=== PATIENT | male | born 1945 | race Caucasian/White ===

== ENCOUNTER → 2017-01-28 | Day surgery (SDC) | payer MEDICARE, OTHER ==
[2017-01-28] VITALS (9 sets, daily range): BP systolic 125–161; BP diastolic 64–93; PULSE 59–83; RESP 13–24; O2SAT 92–98
[~2017-01-28] VITALS: Ht 180.3 cm; Wt 91.5 kg
[~2017-01-28] MED LIST: ASPI-973 PO; Atropine 0.4 mg/mL Inj IVPUSH PRN; Bupivacaine-MPF 0.5% 30 mL Inj INFILTRATE ONE; CAR8A PO; CITA20TA11 PO; CeFAZolin Inj 2 GM in IV Premix 1 EACH IV SCH; Dexamethasone 4 mg/mL Inj IVPUSH PRN; EPHEDrine Sulfate 50 mg/mL Inj IVPUSH PRN; EPHEDrine/NS 5 mg/mL 5 mL Syringe ONE; Glycopyrrolate 0.2 MG/ML 1mL Inj ONE; HYDROcodone-APAP 10-325 mg PO ONE; HYDROcodone-APAP 10-325 mg PO PRN; HYDROmorphone 0.5 mg/0.5 mL iSecure Syringe ONE; HYDROmorphone 1 mg/mL Inj IVPUSH PRN; Labetalol 5 mg/mL 20 mL Inj IV PRN; Lactated Ringer's 1,000 ML IV SCH; Lactated Ringer's 500 ML IV PRN; MELA1TAB10 PO; MULT1CAP33 PO; Neostigmine 1 mg/mL 10 mL Inj ONE; Ondansetron 2 mg/mL 2 mL Inj IVPUSH PRN; Ondansetron 2 mg/mL 2 mL Inj ONE; PANT40TA3 PO; Phenylephrine 10,000 mCg/mL Inj IVPUSH PRN; Propofol 10,000 mCg/mL 20 mL Inj ONE; Remifentanil 1 mg/3 mL Inj ONE; Rocuronium 10 mg/mL 5 mL Inj ONE; fentaNYL-PF 50 mCg/mL 2 mL Inj IVPUSH PRN; fentaNYL-PF 50 mCg/mL 2 mL Inj ONE; hydrALAZINE 20 mg/mL Inj IVPUSH PRN
[2017-01-28] MEDS: Lactated Ringer's 1,000 ML IV SCH ×3 (06:22→09:59)
--- NOTE | 2017-01-28 07:05 | PCM.HPANE ---
Patient Data Surgeon Admitting Provider: Attending Provider:Fei Fay MD Primary Care Physician:Stew Cid MD Other Provider:Carmelita Price Anesthesia Reason for Visit Left Hydrocele Ht/WT & BMI Height (Feet): 5 Height (Inches): 11 Weight (Kilograms): 91.5 Body Mass Index 28.00 Allergies Coded Allergies: No Known Allergies (Unverified , 01/27/17) Past Anesthesia History Anesthesia History: Denies:: Abnormal Airway, Anesthesia Reactions, Difficult Intubation, Fam Anesthesia Reaction, Fam Malignant Hypertherm, Malignant Hyperthermia Diabetes History Hx Diabetes?: No MRSA MRSA: No Medications Home Meds Incl Beta Kelly: No Reported Medications Multivitamin (Multivitamins)1 Each Capsule1 Each PO 01/27/[address] 40 Mg Tablet.dr40 Mg PO DAILY Ref 0 01/27/17 Melatonin (Melatonin 1 mg Tablet)1 Each Tablet1 Mg PO HS Ref 0 01/27/17 Doxazosin (Cardura)8 Mg Tablet8 Mg PO HS Ref 0 01/27/17 Citalopram 20 Mg Zauqoz51 Mg PO DAILY Ref 0 01/27/17 Aspirin 81 Mg [id number] Mg PO DAILY Ref 0 01/27/17 Discontinued Reported Medications Multivitamin (Men's Multi-Vitamin)1 Each Tablet1 Each PO DAILY 01/26/[address] 40 Mg Tablet.dr40 Mg PO DAILY Ref 0 01/26/17 Melatonin/Pyridoxine HCl (B6) (Melatonin 10 mg Tablet)1 Each Tab.mphase1 Each PO HS 01/26/17 Doxazosin (Cardura)8 Mg Tablet8 Mg PO HS Ref 0 01/26/17 Citalopram 20 Mg Cqoeef74 Mg PO DAILY Ref 0 01/26/17 Aspirin 81 Mg Nmuslo18 Mg PO DAILY Ref 0 01/26/17 History History of ENT Problems?: No HEENT History: Positive for:: Hearing Problem Denies:: Abnormal Airway Difficult Intubation Dysphagia Sinus Problem TMJ Denture Type: None Teeth Condition: Within Normal Limits Hx of Heart Problems?: No Cardiovascular History: Denies:: AICD Abdominal Aortic Aneurism Atrial Fibrillation Cardiac Surgery Chest Pain Congestive Heart Failure Coronary Artery Disease Edema Heart Murmur Hypertension Irregular Heartbeat Pacemaker Peripheral Vascular Rheumatic Fever Thrombophlebitis Valvular Heart Disease Hx of Respiratory Problem?: No Respiratory History: Denies:: Use of C-PAP Machine Hx Neurologic Problems?: No Neurological History: Denies:: Alzheimer's Disease CVA Dementia Dizziness Headaches Multiple Sclerosis Parkinson's Disease Seizures TIA Hx of GI Problems?: No Hx of Problems?: No Male Hx: Positive for:: Scrotal Mass (Resason for admission) Denies:: Prostate Problems Testicular Surgery Skin History: Denies:: History Skin Disorders? Pressure Ulcers Hx Musculoskeletal Problems?: No Hx of Psycho/Social Problems?: No (situational depression) Psycho Social History: Positive for:: Hx Depression Hx Surgeries?: Yes (eye lids surgery, arterial ligation to help with reproduction) Other History: Positive for:: Hospitalization (plastic surgery eye lids) Denies:: Cancer Endocrine Disease Thyroid Disease History Blood Transfusions: Positive for:: Accept Blood Products? Denies:: Blood Transfusions Hx Diabetes: No Hx Alcohol Use: YesAlcoholic Drinks Per Day: 8 oz glass of wine 2-3 times a weekHx Substance Use: No Stop/Bang S-Snoring: Do You Snore Loudly: No T-Tired: feel tired, fatigued: Yes O-Obsered: Observed not breath: Yes P-Blood Pressure: treated: No B- Body Mass Index > 35 kg/m2: No A- Age over 50: Yes N- Neck Large Circumference: No G- Gender Male: Yes LANEY Total Score: 4 Risk Assessment Category Category 1A: Patient has history of documented sleep apnea, and HAS NOT received any narcotic, sedative or anesthesia administration during this stay. Category 1B: Patient has history of documented sleep apnea, and HAS received any narcotic , sedative or anesthesia administration during this stay Category 2: Patient has SUSPECTED Obstructive Sleep Apnea, and HAS received any narcotic , sedative or anesthesia administration during this stay. Category 3: Patient has SUSPECTED Obstructive Sleep Apnea and HAS NOT received narcotic, sedative or anesthesia administration during this stay. Category 4: Outpatient in Procedural Areas with known sleep apnea or who screen positive for High Risk via the STOP/BANG questionnaire. Exam Exam Vital Signs Vital Signs Date Time Temp Pulse Resp B/P Pulse Ox O2 Delivery O2 Flow Rate FiO2 01/28/17 06:11 36.6 59 16 135/81 97 Room Air General Appearance: Alert, Oriented X3, Cooperative, Mild Distress HEENT/AIRWAY: MP 2 Lungs: Clear to Auscultation Heart: Exam Unremarkable Meds/Labs/Diagnostics Admission Meds Current Medications Lactated Ringer's (Lr) 1,000 ml @ 120 mls/hr Q8H20M IV Last administered on t 06:22; Start 01/28/17 at 05:00; Stop 01/28/17 at 13:19 Plan Impression Patient chart reviewed, patient interviewed and anesthestic plan with risks, benefits, and alternatives discussed, and informed consent obtained. ASA Physical Status: ASA2 Mod Systemic Disease Anesthetic Plan: GA Bene/Risks/Altern/Consents: Yes HP Complete Prior to Induction: Yes Hung Jorgensen MD Jan 28, 2017 07:05
--- NOTE | 2017-01-28 09:34 | PCM.SURGPO ---
Immediate Operative Note Date of Surgery: Jan 28, 2017 Pre Operative Diagnosis L hydrocele Post Operative Diagnosis L hydrocele Procedure L hydrocelectomy Surgeon and Bus Washer Surgeon: Fei Fay MD Assistants: None Findings Moderate L hydrocele seen. L hydrocelectomy performed. Complications There were no periprocedural complications identified. Surgical Specimen Removed: Yes Specimen sent to Pathology: Yes Surgical Specimen description: L hydrocele sac Anesthetic Administered: GA Grafts, Implants: None Output, Estimated Blood Loss: <5 Blood Admin during surgery: No Additional information Patient to return to see me in 2 weeks for post-op visit. Fei Fay MD Jan 28, 2017 09:34
--- NOTE | 2017-01-28 09:35 | PCM.ANEP1 ---
Post Anesthesia PACU Phase 1 Assessment Vital Signs Vital Signs Date Time Temp Pulse Resp B/P Pulse Ox O2 Delivery O2 Flow Rate FiO2 01/28/17 09:30 36.2 76 13 125/64 93 Room Air 01/28/17 09:25 78 13 131/72 93 Room Air 01/28/17 09:20 80 13 140/72 92 Room Air 01/28/17 09:14 36.0 80 16 139/73 95 Room Air 01/28/17 06:11 36.6 59 16 135/81 97 Room Air Anesthetic Administered: GA Level of Alertness: Awake, talking VALERA's with Equal Strength: Yes Pain: No Nausea or Vomiting: No CV Function & Hydration Stable: Yes Airway Device: Oxygen Delivery: Room Air Lungs: Clear to Auscultation PACU Phase 2 Assessment Complications: No Follow up Care: No Patient Instructions Provided: N/A Hung Jorgensen MD Jan 28, 2017 09:35
--- NOTE | 2017-01-28 10:00 | PCM.DISURG ---
Surgical Discharge Instruction Date of Service Jan 28, 2017 Dates of Hospitalization Date of Hospital Admission Jan 28, 2017 Providers Admitting Physician: Fei Fay MD Primary Care Physician: Stew Cid MD Attending Physician: Fei Fay MD Discharge Diagnosis Discharge Diagnosis L hydrocele Post Operative diagnosis L hydrocele Diet Discharge Diet: No restrictions Activity Discharge Activity-General: No driving while taking narcotic, Other (No strenuous exercise/activity or moderate or heavy lifting (> 10 lbs.) for 1-2 weeks) Dressing and Incisional Care Dressing Care: Other (Remove dressing (on wound) and loose gauze dressing in 2 days. Continue to use scrotal support at all times.) Hygiene: Other (May shower in 2 days. No bath/pool/spa for 4 weeks) Follow Up Plan Follow-up Provider (F9): Fei Fay MD Follow-up appointment: Weeks (2 weeks for post-op visit) Call your provider for: Fever, Chills, Vomiting, Wound redness, Increasing wound pain, Warmth to touch, Discharge @ incision, pus discharge, Other (Pain uncontrolled by pain medications) Fei Fay MD Jan 28, 2017 10:00
--- NOTE | 2017-01-29 20:50 | OP ---
[address] [address] OPERATIVE REPORT PATIENT: GILLIAN COLBERT : 1945 MR#: [id number] ADMIT: 01/28/2017 JOB ID: [id number] DATE OF SURGERY: 01/28/2017 SURGEON: Fei Fay MD ELEMENTARY VOCAL MUSIC TEACHER: None. PREOPERATIVE DIAGNOSIS(ES): Left hydrocele. POSTOPERATIVE DIAGNOSIS(ES): Left hydrocele. PROCEDURE: Left hydrocelectomy. ANESTHESIA: General. ESTIMATED BLOOD LOSS: Less than 5 mL SPECIMENS: Left hydrocele sac. DRAINS: None. COMPLICATION: None. CONDITION: Stable. FINDINGS: Moderate left hydrocele seen. Left hydrocelectomy was performed. INDICATIONS: The patient is a 71-year-old male with a left hydrocele which is symptomatic which and bothersome. The patient now presents for left hydrocelectomy. PROCEDURE IN DETAIL: Patient brought to the operating room and placed supine on the operating room table. The patient was given Ancef IV antibiotic. Sequential compression device boots were placed. General anesthesia was administered. Patient was placed in supine position. The patient was prepped and draped in standard surgical fashion. A moderate size left hydrocele was seen. The incision was made through the skin and subcutaneous tissue a #15 blade sharply. This was a transverse incision in left hemiscrotum. The incision was carried through dartos fascia using Bovie electrocautery. The hydrocele sac and tunica vaginalis were identified. The hydrocele sac and tunica vaginalis were bluntly dissected away from surrounding structures and then brought out of the scrotum. Incision was made in tunica vaginalis and hydrocele sac sharply using a 15 blade. Hydrocele fluid was drained. The incision was widened using Bovie electrocautery. Of note, this incision had been made well away from testis and scrotal structures. The testis and scrotal structures were brought out of the hydrocele sac. The testis and epididymis were seen to be normal. Hydrocele sac was excised using Bovie electrocautery and sent to Pathology for permanent specimen. The edges of the hydrocele sac were oversewn using a running 3-0 chromic suture. The scrotum and wound were irrigated with sterile solution. Then excellent hemostasis was achieved using Bovie electrocautery. The testis and epididymis were placed back within the patient's scrotum making sure that the testis, epididymis and spermatic cord were in correct anatomic position and the spermatic cord was not twisted. Then the dartos layer was closed using a running 3-0 Vicryl suture. Then local anesthesia in the form of 0.5% plain Marcaine was administered subcutaneously. The skin edges were reapproximated using simple interrupted 3-0 chromic sutures. The skin was cleaned and dried. Sterile dressing and scrotal fluff gauze dressing and scrotal support were applied. The patient was awakened from general anesthesia and transferred to the recovery room in stable condition. The patient tolerated procedure well. Plan is for the patient to return to see me in the office in two weeks for postoperative visit.
--- NOTE | 2017-02-01 16:32 | PATH ---
SURGICAL PATHOLOGY Attending Physician:Fei Fay MD CASE STATUS: Signed Out PATIENT NAME: GILLIAN COLBERT PID: [id number] : 1945 DATE COLLECTED:01/28/2017 20:29 SPECIMEN: Hydrocele CLINICAL HISTORY: LEFT HYDROCELE, EXCISION 1). LEFT HYDROCELE FINAL DIAGNOSIS: 1.LEFT HYDROCELE, EXCISION: - MESOTHELIAL LINED FIBROCONNECTIVE TISSUE COMPATIBLE WITH HYDROCELE. - SCATTERED CHRONIC INFLAMMATION. ICD10 N43.3 GROSS DESCRIPTION: The specimen is received in formalin, labeled with the patient's name, sublabeled as left hydrocele, and consists of multiple pieces of peralta-pink rubbery glistening semitranslucent membranous tissue (4.2 x 3.5 x 0.2 cm in aggregate). Section code: (A) tissue, serially sectioned, publications sales representative. 01/30/17 JM MICRO DESCRIPTION: See diagnosis. ICD-9 CODES: CPT CODES: 1: 85484 Electronically Signed Out Atul Chavez MD [facility] [address], [place] [address] Technical component performed at [facility], [address] [place] [address] Ave[address], [place], [address]
== END | disposition home or self-care (01) ==
LOC: SAS 05:37
PROVIDERS: ATTEND Urology
DX: N43.3 Hydrocele, unspecified (principal); N40.1 Benign prostatic hyperplasia with lower urinary tract symptoms; R33.9 Retention of urine, unspecified; K21.9 Gastro-esophageal reflux disease without esophagitis; F41.9 Anxiety disorder, unspecified; F90.9 Attention-deficit hyperactivity disorder, unspecified type; Z79.82 Long term (current) use of aspirin
CPT/HCPCS: 55040; J0690; J1170; J2250; J2405; J2704; J2710; J3010; J7120